=== PATIENT | male | born 1980 | race Caucasian/White ===

== ENCOUNTER 2019-03-10 16:34 | Emergency (ER) | payer OTHER ==
[2019-03-10] MEDS ORDERED: SODIUM CHLORIDE 0.9% 1000ML 1,000 ML IV NR (17:00)
[2019-03-10 17:03] VITALS: TEMP 98
[2019-03-10] MEDS ORDERED: SODIUM CHLORIDE 0.9% 1000ML 1,000 ML IV ONE (17:29)
[2019-03-10] MEDS ORDERED: SODIUM CHLORIDE 0.9% FLUSH 10 ML SOL IV PRN (17:30)
[2019-03-10 18:05] LABS: BASOPHILS % (AUTO) 1 % (0-3); EOSINOPHILS % (AUTO) 1 % (0-9); HEMATOCRIT 46 % (39-53); HEMOGLOBIN 14.9 gm/dl (13.5-17.7); LYMPHOCYTES % (AUTO) 28.9 % (10-50); MEAN CORPUSCULAR HEMOGLOBIN 28.8 pg (27.0-32.0); MEAN CORPUSCULAR HGB CONC 32.4 gm/dl (32.0-36.0); MEAN CORPUSCULAR VOLUME 89 fL (80-100); NEUTROPHILS % (AUTO) 60.9 % (37-80)
[2019-03-10 18:14] VITALS: BP 113/75; PULSE 74; RESP 18
[2019-03-10 18:20] LABS: ALKALINE PHOSPHATASE 75 IU/L (46-116); ALT 38 IU/L (14-63); AST 20 IU/L (15-37); BILIRUBIN,TOTAL 0.4 mg/dl (0.2-1.0); BLOOD UREA NITROGEN 21 mg/dl (7-18); CALCIUM 8.9 mg/dl (8.5-10.1); CARBON DIOXIDE 27.8 mEq/L (21-32); CHLORIDE 105 mMol/L (98-107); CREATININE 1.12 mg/dl (0.80-1.30); GLUCOSE 94 mg/dl (74-106); MAGNESIUM 2.1 mg/dl (1.8-2.4); POTASSIUM 3.7 mMol/L (3.5-5.1); SODIUM 140 mMol/L (136-145); TOTAL PROTEIN 7.5 gm/dl (6.4-8.2); TROP I < 0.017 ng/ml (0.000-0.056)
[2019-03-10 18:21] VITALS: O2SAT 100
== END 2019-03-10 19:13 | disposition home or self-care (01) | DRG 310 ==
LOC: ED 16:34
DX: I48.0 Paroxysmal atrial fibrillation (principal); Z86.74 Personal history of sudden cardiac arrest; R06.02 Shortness of breath
CPT/HCPCS: 71045; 80053; 83735; 84484; 85025; 93005; 96365; 99285; 99291; J2704